=== PATIENT | male | born 1970 | race Caucasian/White ===

== ENCOUNTER 2018-01-19 17:40 | Observation (INO) ==
[2018-01-19] MEDS ORDERED: Isovue-370 500 ML INFUS..BTL IV ONE (17:50)
[2018-01-19] MEDS ORDERED: 0.9 % Sodium Chloride 500 ML IVC ONE (17:54)
--- NOTE | 2018-01-19 18:01 | Emergency Department Note ---
Disposition Clinical Impression: Chest pain Qualifiers: Chest pain type: unspecified Qualified Code(s): R07.9 - Chest pain, unspecified Hypertension Qualifiers: Hypertension type: unspecified Qualified Code(s): I10 - Essential (primary) hypertension Disposition: Admitted As Inpatient Condition: Fair Chest Pain HPI - General Stated Complaint: "htn,chest pressure,numbness in hand,headache" Time Seen by Provider: 01/19/18 17:43 Source: patient Mode of arrival: ambulatory Limitations: no limitations Vital Signs Reviewed: Yes Nursing Notes Reviewed: Yes - History of Present Illness HPI Narrative: 47-year-old male with a history of hypertension, dissection in the past presents for evaluation of chest pain. Patient states he developed chest pain intermittently since yesterday. Describes the pain in the left side of his chest without radiation. States it is similar to prior episode when he was evaluated. Patient did have a history of dissection and was transferred to [facility]. Patient reports that he took his blood pressure medication earlier today. Notes that his blood pressure is 180 systolic. Patient denies any nausea or vomiting but did note some diaphoresis. Denies any history of heart attacks. Patient also notes a headache with some left arm numbness. Patient denies any abdominal pain. No weakness in the legs. Severity scale (1-10): 0 - Related Data Home Medications Medication Instructions Recorded Confirmed Atorvastatin Calcium [Lipitor] 80 mg PO HS 01/19/18 01/19/18 Carvedilol 3.125 mg PO BID 01/19/18 01/19/18 Escitalopram [Lexapro] 20 mg PO DAILY 01/19/18 01/19/18 Esomeprazole Magnesium [Nexium] 40 mg PO DAILY 01/19/18 01/19/18 Gabapentin [Neurontin] 800 mg PO TID 01/19/18 01/19/18 Lisinopril [Zestril] 20 mg PO DAILY 01/19/18 01/19/18 Trazodone HCl 50 mg PO HS 01/19/18 01/19/18 Allergies Allergy/AdvReac Type Severity Reaction Status Date / Time No Known Allergies Allergy Verified 08/25/17 22:58 All systems ED: reviewed and negative except as stated. Constitutional: Denies: fever Cardiovascular: Reports: chest pain. Denies: palpitations Respiratory: Reports: dyspnea. Denies: cough, sputum production Gastrointestinal: Denies: abdominal pain, nausea, vomiting Chest Pain PMH - Past Medical History Medical history: Reports: hypertension, kidney stones, myocardial infarction Psychiatric history: Reports: anxiety, depression - Social History Smoking Status: Current every day smoker Alcohol use: Reports: rarely Drug use: Reports: none Physical Exam - General Limitations: no limitations General appearance: alert, in no apparent distress - Head Head exam: atraumatic, normocephalic, normal inspection - Eye Eye exam: Present: normal appearance, PERRL, EOMI - ENT ENT exam: normal exam, mucous membranes moist - Neck Neck exam: Present: normal inspection - Chest Chest inspection: Present: normal inspection, symmetric chest wall rise - Respiratory Respiratory exam: Present: normal lung sounds bilaterally. Absent: respiratory distress - Cardiovascular Cardiovascular exam: Present: regular rate, normal rhythm. Absent: systolic murmur - Abdominal Exam Abdominal exam: Present: soft, Non-Tender - Extremities Exam Extremities exam: Present: normal inspection. Absent: pedal edema - Expanded Lower Extremity Exam Neurovascular/Tendon exam: Present: normal capillary refill - Neurological Exam Neurological exam: Present: alert, oriented X3, CN II-XII intact - Skin Skin exam: Present: warm, dry, intact, normal color Course Course Narrative: Patient has a long symmetric radial pulses bilaterally. Given the patient's history patient with a CT Maritza the chest abdomen pelvis. - Reevaluation(s) Reevaluation #1: Patient seen and examined. Patient states that his pain has improved. Time: 19:37 Vital Signs Temperature 98.2 F 01/19/18 17:53 Pulse Rate 66 01/19/18 17:53 Respiratory Rate 16 01/19/18 17:53 Blood Pressure 162/101 01/19/18 17:53 O2 Sat by Pulse Oximetry 96 01/19/18 17:53 Temperature 98.2 F 01/19/18 17:53 Pulse Rate 57 01/19/18 19:43 Respiratory Rate 18 01/19/18 20:10 Blood Pressure 148/87 01/19/18 20:10 O2 Sat by Pulse Oximetry 97 01/19/18 19:43 Oxygen Delivery Oxygen Delivery Room Air Chest Pain - MDM Narrative Medical decision making narrative: 47-year-old male percent for evaluation of chest pain. Patient was hypertensive. 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 Patient was unclear of the source of the patient's aneurysm or dissection. Given that history the patient had a CTA of the chest, abd/ pelvis. Patient's chest pain as well as blood pressure improved after nitroglycerin. Given the patient's history and risk factors the patient would be observed for further evaluation with likely provocative stress testing. Disposition is admission. Patient's agreeable with this plan of care. Patient's CT of the chest abdomen pelvis does not show any acute abnormalities. Appears to be all chronic. Patient does not have any abdominal dissection. Patient was given aspirin given his degree of chest pain and concerns for ACS. - Lab Data Lab results reviewed: Yes I reviewed the patient's lab results. Result diagrams: 01/19/18 18:09 01/19/18 18:09 Lab Results 01/19/18 01/19/18 01/19/18 Range/Units 18:09 18:09 18:09 WBC 8.7 (4.3-11.1) K/mcL RBC 5.04 (4.19-5.50) M/mcL Hgb 14.5 (12.9-16.9) g/dL Hct 43.5 (37.5-50.1) % MCV 86.3 (83.0-100.0) fL MCH 28.8 (28.0-33.3) pg MCHC 33.3 (31.6-35.5) g/dL RDW 13.2 (11.5-14.5) % Plt Count 167 (140-400) K/mcL MPV 10.4 (9.4-12.4) fL Immature Gran % 0.3 (0-4) % Seg Neutrophils % 57.9 % Lymphocytes % 29.1 % Monocytes % 9.0 % Eosinophils % 2.9 % Basophils % 0.8 % Neutrophils # 5.0 (1.6-8.9) K/mcL Lymphocytes # 2.5 (0.6-4.6) K/mcL Monocytes # 0.8 (0.0-1.3) K/mcL Eosinophils # 0.3 (0.0-0.6) K/mcL Basophils # 0.1 (0.0-0.2) K/mcL PT 11.2 (9.4-12.1) Seconds INR 1.0 Sodium (136-145) mEq/L Potassium (3.5-5.1) mEq/L Chloride (98-107) mEq/L Carbon Dioxide (23-29) mEq/L BUN (6-20) mg/dL Creatinine (0.70-1.30) mg/dL Est GFR ( Amer) (> 60) Est GFR (Non-Af Amer) (> 60) BUN/Creatinine Ratio (6-26) Glucose (70-105) mg/dL Calculated Osmolality (280-300) Calcium (8.6-10.3) mg/dL Troponin I (< 0.04) ng/mL B-Natriuretic Peptide 12 (Less than 100) pg/mL 01/19/18 Range/Units 18:09 WBC (4.3-11.1) K/mcL RBC (4.19-5.50) M/mcL Hgb (12.9-16.9) g/dL Hct (37.5-50.1) % MCV (83.0-100.0) fL MCH (28.0-33.3) pg MCHC (31.6-35.5) g/dL RDW (11.5-14.5) % Plt Count (140-400) K/mcL MPV (9.4-12.4) fL Immature Gran % (0-4) % Seg Neutrophils % % Lymphocytes % % Monocytes % % Eosinophils % % Basophils % % Neutrophils # (1.6-8.9) K/mcL Lymphocytes # (0.6-4.6) K/mcL Monocytes # (0.0-1.3) K/mcL Eosinophils # (0.0-0.6) K/mcL Basophils # (0.0-0.2) K/mcL PT (9.4-12.1) Seconds INR Sodium 138 (136-145) mEq/L Potassium 3.7 (3.5-5.1) mEq/L Chloride 105 (98-107) mEq/L Carbon Dioxide 25 (23-29) mEq/L BUN 12 (6-20) mg/dL Creatinine 1.29 (0.70-1.30) mg/dL Est GFR ( Amer) > 60 (> 60) Est GFR (Non-Af Amer) 59 L (> 60) BUN/Creatinine Ratio 9 (6-26) Glucose 93 (70-105) mg/dL Calculated Osmolality 285 (280-300) Calcium 9.2 (8.6-10.3) mg/dL Troponin I < 0.03 (< 0.04) ng/mL B-Natriuretic Peptide (Less than 100) pg/mL - Radiology Data Radiology results reviewed: Yes I reviewed the patient's radiology results. Chest X-Ray 01/19/18 17:49 IMPRESSION: No acute cardiopulmonary disease. 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 A small patent channel is still present, and there is preserved opacification of the more peripheral hepatic artery branches. There appears to be some collateralization from the left gastric artery to the right gastric artery. Dissection involving the posterior division of the right renal artery, similar to the previous examination. There is scarring involving the right kidney in the site of previous infarct. Combination of findings raises the possibility of connective tissues disorder, vasculitis, or FMD. No evidence of aortic aneurysm or dissection. 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 Dissection involving the common hepatic artery with interval thrombosis of the false lumen. A small patent channel is still present, and there is preserved opacification of the more peripheral hepatic artery branches. There appears to be some collateralization from the left gastric artery to the right gastric artery. Dissection involving the posterior division of the right renal artery, similar to the previous examination. There is scarring involving the right kidney in the site of previous infarct. Combination of findings raises the possibility of connective tissues disorder, vasculitis, or FMD. No evidence of aortic aneurysm or dissection. D/ / 01/19/2018 19:59:46 Riki Degroot MD / tonya Interpreting Provider: Riki Degroot MD - EKG Data EKG attestation: Yes I reviewed and interpreted this EKG. EKG shows normal: sinus rhythm Rate: normal Rhythm: NSR [place]/QRS: left axis deviation Voltage: c/w LVH T wave inversions noted in: aVR, v1 Interpretation: no acute changes, nonspecific ST-T wave changes Heart Score - Score History: Moderately Suspicious EKG: Non Specific repolarisation Disturbance Age: 45-65 Risk Factors: Equal/Greater than 3 risk factor or history of atherosclerotic disease Troponin: Less than normal limit HEART Score Total: 5 S.French.Marcus - Jess Situation: Demographics Background: Presenting Complaint Assessment: Vital Signs, Course and respsone to treatment Recommendation: Barrier(s) to disposition, Recommendation based on pending studies, treatments, or consults SCarlie Report Given to: Dr. Christy Mercado Repor Time: 19:44
[2018-01-19 18:22] LABS: Basophils # 0.1 K/mcL (0.0-0.2); Basophils % 0.8 %; Eosinophils # 0.3 K/mcL (0.0-0.6); Eosinophils % 2.9 %; Hematocrit 43.5 % (37.5-50.1); Hemoglobin 14.5 g/dL (12.9-16.9); Immature Granulocytes % 0.3 % (0-4); Lymphocytes # 2.5 K/mcL (0.6-4.6); Lymphocytes % 29.1 %; Mean Corpuscular HGB Conc 33.3 g/dL (31.6-35.5); Mean Corpuscular Hemoglobin 28.8 pg (28.0-33.3); Mean Corpuscular Volume 86.3 fL (83.0-100.0); Mean Platelet Volume 10.4 fL (9.4-12.4); Monocytes # 0.8 K/mcL (0.0-1.3); Platelet Count 167 K/mcL (140-400); Red Blood Count 5.04 M/mcL (4.19-5.50); Red Cell Distribution Width 13.2 % (11.5-14.5); Segmented Neutrophils % 57.9 %
[2018-01-19 18:27] LABS: Prothrombin Time 11.2 Seconds (9.4-12.1)
[2018-01-19] MEDS: Nitroglycerin 0.4 MG TAB.SUBL SL ONE ×2 (18:29→19:00)
[2018-01-19 18:46] LABS: BUN/Creatinine Ratio 9 (6-26); Blood Urea Nitrogen 12 mg/dL (6-20); Calcium 9.2 mg/dL (8.6-10.3); Carbon Dioxide 25 mEq/L (23-29); Chloride 105 mEq/L (98-107); Glucose 93 mg/dL (70-105); Osmolality,Calculated 285 (280-300); Potassium 3.7 mEq/L (3.5-5.1); Sodium 138 mEq/L (136-145); Troponin I < 0.03 ng/mL (< 0.04); eGFR For African Americans > 60 (> 60); eGFR For Non-African Americans 59 (> 60)
[2018-01-19] MEDS ORDERED: Aspirin 325 MG TABLET PO ONE (20:04)
--- NOTE | 2018-01-19 20:14 | Emergency Department Note ---
Disposition Clinical Impression: Chest pain Qualifiers: Chest pain type: unspecified Qualified Code(s): R07.9 - Chest pain, unspecified Hypertension Qualifiers: Hypertension type: unspecified Qualified Code(s): I10 - Essential (primary) hypertension Disposition: Admitted As Inpatient Condition: Fair General Adult HPI - General Chief complaint: ED Chest Pain Stated complaint: "htn,chest pressure,numbness in hand,headache" Time Seen by Provider: 01/19/18 17:43 Source: patient Mode of arrival: ambulatory Limitations: no limitations - History of Present Illness Pain Scale: 0 - Related Data Home Medications Medication Instructions Recorded Confirmed Atorvastatin Calcium [Lipitor] 80 mg PO HS 01/19/18 01/19/18 Carvedilol 3.125 mg PO BID 01/19/18 01/19/18 Escitalopram [Lexapro] 20 mg PO DAILY 01/19/18 01/19/18 Esomeprazole Magnesium [Nexium] 40 mg PO DAILY 01/19/18 01/19/18 Gabapentin [Neurontin] 800 mg PO TID 01/19/18 01/19/18 Lisinopril [Zestril] 20 mg PO DAILY 01/19/18 01/19/18 Trazodone HCl 50 mg PO HS 01/19/18 01/19/18 Allergies Allergy/AdvReac Type Severity Reaction Status Date / Time No Known Allergies Allergy Verified 08/25/17 22:58 Constitutional: Denies: fever Cardiovascular: Reports: chest pain. Denies: palpitations Respiratory: Reports: dyspnea. Denies: cough, sputum production Gastrointestinal: Denies: abdominal pain, nausea, vomiting Past Medical History - Past Medical History Medical history: Reports: hypertension, kidney stones, myocardial infarction Psychiatric history: Reports: anxiety, depression - Social History Smoking Status: Current every day smoker Smokeless Tobacco Status: No Alcohol use: Reports: rarely Drug use: Reports: none Physical Exam - General Limitations: no limitations General appearance: alert, in no apparent distress Course Vital Signs Temperature 98.2 F 01/19/18 17:53 Pulse Rate 66 01/19/18 17:53 Respiratory Rate 16 01/19/18 17:53 Blood Pressure 162/101 01/19/18 17:53 O2 Sat by Pulse Oximetry 96 01/19/18 17:53 Temperature 98.2 F 01/19/18 17:53 Pulse Rate 57 01/19/18 19:43 Respiratory Rate 18 01/19/18 20:10 Blood Pressure 148/87 01/19/18 20:10 O2 Sat by Pulse Oximetry 97 01/19/18 19:43 Oxygen Delivery Oxygen Delivery Room Air Medical Decision Making - Lab Data Result diagrams: 01/19/18 18:09 01/19/18 18:09 Lab Results 01/19/18 01/19/18 01/19/18 Range/Units 18:09 18:09 18:09 WBC 8.7 (4.3-11.1) K/mcL RBC 5.04 (4.19-5.50) M/mcL Hgb 14.5 (12.9-16.9) g/dL Hct 43.5 (37.5-50.1) % MCV 86.3 (83.0-100.0) fL MCH 28.8 (28.0-33.3) pg MCHC 33.3 (31.6-35.5) g/dL RDW 13.2 (11.5-14.5) % Plt Count 167 (140-400) K/mcL MPV 10.4 (9.4-12.4) fL Immature Gran % 0.3 (0-4) % Seg Neutrophils % 57.9 % Lymphocytes % 29.1 % Monocytes % 9.0 % Eosinophils % 2.9 % Basophils % 0.8 % Neutrophils # 5.0 (1.6-8.9) K/mcL Lymphocytes # 2.5 (0.6-4.6) K/mcL Monocytes # 0.8 (0.0-1.3) K/mcL Eosinophils # 0.3 (0.0-0.6) K/mcL Basophils # 0.1 (0.0-0.2) K/mcL PT 11.2 (9.4-12.1) Seconds INR 1.0 Sodium (136-145) mEq/L Potassium (3.5-5.1) mEq/L Chloride (98-107) mEq/L Carbon Dioxide (23-29) mEq/L BUN (6-20) mg/dL Creatinine (0.70-1.30) mg/dL Est GFR ( Amer) (> 60) Est GFR (Non-Af Amer) (> 60) BUN/Creatinine Ratio (6-26) Glucose (70-105) mg/dL Calculated Osmolality (280-300) Calcium (8.6-10.3) mg/dL Troponin I (< 0.04) ng/mL B-Natriuretic Peptide 12 (Less than 100) pg/mL 01/19/18 Range/Units 18:09 WBC (4.3-11.1) K/mcL RBC (4.19-5.50) M/mcL Hgb (12.9-16.9) g/dL Hct (37.5-50.1) % MCV (83.0-100.0) fL MCH (28.0-33.3) pg MCHC (31.6-35.5) g/dL RDW (11.5-14.5) % Plt Count (140-400) K/mcL MPV (9.4-12.4) fL Immature Gran % (0-4) % Seg Neutrophils % % Lymphocytes % % Monocytes % % Eosinophils % % Basophils % % Neutrophils # (1.6-8.9) K/mcL Lymphocytes # (0.6-4.6) K/mcL Monocytes # (0.0-1.3) K/mcL Eosinophils # (0.0-0.6) K/mcL Basophils # (0.0-0.2) K/mcL PT (9.4-12.1) Seconds INR Sodium 138 (136-145) mEq/L Potassium 3.7 (3.5-5.1) mEq/L Chloride 105 (98-107) mEq/L Carbon Dioxide 25 (23-29) mEq/L BUN 12 (6-20) mg/dL Creatinine 1.29 (0.70-1.30) mg/dL Est GFR ( Amer) > 60 (> 60) Est GFR (Non-Af Amer) 59 L (> 60) BUN/Creatinine Ratio 9 (6-26) Glucose 93 (70-105) mg/dL Calculated Osmolality 285 (280-300) Calcium 9.2 (8.6-10.3) mg/dL Troponin I < 0.03 (< 0.04) ng/mL B-Natriuretic Peptide (Less than 100) pg/mL Attestation Statement - Attestation Attestation: I examined this patient and my medical decision-making was reviewed with the Resident Physician, Dr. Muller. I agree with the documented findings, disposition and treatment plan as described except to the extent set forth below. Patient is a 47-year-old white male with a history of hypertension and prior vascular dissection who presents the emergency department with left parasternal chest discomfort that been intermittent over the past 24-36 hours occurring at rest. Patient denies any radiation of pain, shortness of breath, no diaphoresis , no nausea or vomiting, no abdominal pain or flank pain. No lightheadedness or syncope. Patient was concerned because of his prior dissection to is advised to keep a close eye on his blood pressure. Patient reports despite taking his medicines as directed he is having elevated blood pressure and just "feels like my blood pressures high". Patient denies any headaches or neurologic symptoms. Patient significantly hypertensive on arrival to the ED. I agree with patient's physical exam findings as documented. EKG shows a sinus rhythm without acute ischemia. Patient had full lab evaluation, was given nitroglycerin for his chest pain which resolved his pain and improved his blood pressure. Patient was sent for CT imaging due to his history of aneurysms. We do not see any new findings with the exception of his old dissections. Patient was administered aspirin after review of the CT findings and will be admitted for chest pain and elevated blood pressure. Patient remains pain-free resting comfortably with improved vital signs at time of admission.
[2018-01-19] MEDS ORDERED: Acetaminophen 325 MG TABLET PO PRN (20:53)
[2018-01-19] MEDS ORDERED: Naloxone 0.4 MG/ML INJ IVP PRN (20:53)
--- NOTE | 2018-01-19 20:58 | Internal Med History&Physical ---
Date of Encounter: 01/19/18 Time of Encounter: 20:00 Internal Medicine - H&P: HPI Chief complaint: Chest pain Admitted From: Emergency Dept Plans for Post Hospital Care: Home History of present illness: Mr. Thomas is a 47 year old male with h/o- HTN, celiac artery aneurysm, presents with c/o- uncontrolled HTN since yesterday. Patient reports that he was symptomatic with retrosternal chest pain and diffuse headache and did not feel well since yesterday, and when he took his BP, it was constantly elevated, the maximum being 180s/120s. He is unable to provide a detailed history, reports lately his HTN has been well-controlled, no changes in medication dosage ; reports compliance to meds and salt restriction. He denies nausea, vomiting, dizzines, syncope but did have some shortness of breath, left finger numbness; no focal weakness, blurred vision. 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 Past Med Surg Social Fam HX - Past Medical History Source: patient Medical history: aortic aneurysm, hypertension, kidney stones Psychiatric history: anxiety, depression - Past Surgical History Surgical History: herniorrhaphy, orthopedic, other (B/L shoulder surgery) - Social History Smoking Status: Current every day smoker Packs per day: 1/2 Smokeless Tobacco Status: No Alcohol use: rarely Drug use: none Occupational status: disabled Current living situation: Home, With Family Activity Level: Independent ambulation Recent Out of Country Travel Within the Last 8 Weeks: No Exposure or Possible Exposure to Illness During Travel: No - Family History Father Hx Family Cancer: Yes (prostate) Mother Living Status: Age at : 48 Cause of : cancer Hx Family Cancer: Yes (liver, kidney) Internal Medicine - H&P: Meds Atorvastatin Calcium [Lipitor] 80 mg PO HS 01/19/18 [History] Carvedilol 3.125 mg PO BID 01/19/18 [History] Escitalopram [Lexapro] 20 mg PO DAILY 01/19/18 [History] Esomeprazole Magnesium [Nexium] 40 mg PO DAILY 01/19/18 [History] Gabapentin [Neurontin] 800 mg PO TID 01/19/18 [History] Lisinopril [Zestril] 20 mg PO DAILY 01/19/18 [History] Trazodone HCl 50 mg PO HS 01/19/18 [History] 3 Allergy/AdvReac Type Severity Reaction Status Date / Time No Known Allergies Allergy Verified 08/25/17 22:58 All Systems PM: A 10-system review of systems was performed and is negative for pertinent findings except as documented above in the HPI. - Constitutional Constitutional: no chills, no fever(s), no night sweats - EENT Eyes: no change in vision, no discharge, no pain, no photophobia Ears: no ear discharge, no ear pain, no tinnitus Nose, mouth and throat: no dysphagia, no nasal discharge, no neck pain, no sore throat - Cardiovascular Cardiovascular ROS IM: chest pain, dyspnea - Respiratory Respiratory: no cough, no dyspnea, no wheezing, no excessive phlegm production - Gastrointestinal Gastrointestinal: no abdominal pain, no diarrhea, no hematemesis, no hematochezia, no melena, no nausea, no vomiting - Musculoskeletal Musculoskeletal ROS IM: numbness, no tingling - Integumentary Integumentary IM: no rash, no unusual bruising - Neurological Neurological ROS: headache(s), no confusion, no convulsions, no focal weakness, no numbness, no tingling, no tremor(s) - Hematologic/Lymphatic Hematologic/Lymphatic: no easy bruising - Constitutional Vitals: Temp Pulse Resp BP Pulse Ox 98.0 F 58 16 160/97 97 01/19/18 20:42 01/19/18 20:42 01/19/18 20:42 01/19/18 20:42 01/19/18 20:42 General appearance: Present: A&O X 3, answers questions appropriately - Respiratory Respiratory exam: Present: CTAB. Absent: accessory muscle use, rales, rhonchi, wheezes - Cardiovascular Cardiovascular exam: Present: RRR, +S1, +S2. Absent: diastolic murmur, gallop, rubs, systolic murmur - GI/Abdominal GI/Abdominal exam: Present: normal bowel sounds, soft (obese), no peritoneal signs. Absent: distended, tenderness - Extremities Exam Extremities exam: Present: full ROM, warm, radial pulses palpable and symmetrical. Absent: calf tenderness, cyanotic, pedal edema - Neurological Exam Neurological exam: Present: CN II-XII intact, oriented X3, no focal deficits. Absent: pronater drift, facial droop, speech deficit - Skin Skin exam: Present: dry, intact Internal Med - H&P Results - Labs CBC & Chem 7: 01/19/18 18:09 01/19/18 18:09 - EKG Data -: EKG Interpreted by Myself EKG shows normal: sinus rhythm (repolarization changes) Rate: normal - Assessment and plan (1) Chest pain Current Visit: Yes Status: Acute Assessment and plan: likely due to uncontrolled HTN; continue Telemetry monitoring and cycle Troponins; monitor BP closely; continue statin and beta cristian and ACEI; not on ASA and would not continue due to h/o- vascular aneurysm and dissection; Qualifiers: Chest pain type: unspecified Qualified Code(s): R07.9 - Chest pain, unspecified (2) Hypertension Current Visit: Yes Status: Chronic Assessment and plan: Uncontrolled; continue Coreg and Lisinopril; will use IV Hydralazine for appropriate BP control, 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 High risk for complications. 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
[2018-01-19] MEDS: traZODone 50 MG TABLET PO SCH (21:25)
[2018-01-19] MEDS: Gabapentin 400 MG CAPSULE PO SCH (21:26)
[2018-01-20 01:56] LABS: Basophils # 0.1 K/mcL (0.0-0.2); Basophils % 0.8 %; Eosinophils # 0.2 K/mcL (0.0-0.6); Eosinophils % 3.7 %; Hematocrit 43.2 % (37.5-50.1); Hemoglobin 14.5 g/dL (12.9-16.9); Immature Granulocytes % 0.3 % (0-4); Lymphocytes # 2.2 K/mcL (0.6-4.6); Lymphocytes % 35.2 %; Mean Corpuscular HGB Conc 33.6 g/dL (31.6-35.5); Mean Corpuscular Hemoglobin 28.8 pg (28.0-33.3); Mean Corpuscular Volume 85.9 fL (83.0-100.0); Mean Platelet Volume 10.9 fL (9.4-12.4); Monocytes # 0.6 K/mcL (0.0-1.3); Monocytes % 10.4 %; Neutrophils # 3.1 K/mcL (1.6-8.9); Platelet Count 162 K/mcL (140-400); Red Blood Count 5.03 M/mcL (4.19-5.50); Red Cell Distribution Width 13.2 % (11.5-14.5); Segmented Neutrophils % 49.6 %
[2018-01-20 02:21] LABS: BUN/Creatinine Ratio 12 (6-26); Blood Urea Nitrogen 13 mg/dL (6-20); Carbon Dioxide 23 mEq/L (23-29); Chloride 106 mEq/L (98-107); Cholesterol 131 mg/dL (< 200); Glucose 106 mg/dL (70-105); HDL Cholesterol 26 mg/dL (40-59); LDL Cholesterol,Calculated 40 mg/dL (0-99); Magnesium 1.9 mg/dL (1.6-2.6); Osmolality,Calculated 287 (280-300); Potassium 3.2 mEq/L (3.5-5.1); Sodium 138 mEq/L (136-145); Triglycerides 324 mg/dL (< 150); eGFR For African Americans > 60 (> 60); eGFR For Non-African Americans > 60 (> 60)
[2018-01-20] MEDS: Gabapentin 400 MG CAPSULE PO SCH ×3 (07:54→20:54)
[2018-01-20] MEDS: Lisinopril 20 MG TABLET PO SCH (07:54)
[2018-01-20] MEDS ORDERED: Metoclopramide 10 MG/2 ML VIAL IVP ONE (15:00)
[2018-01-20] MEDS ORDERED: Ketorolac 30 MG/ML VIAL IVP ONE (15:00)
--- NOTE | 2018-01-20 15:52 | Internal Med Progress Note ---
Date of Encounter: 01/20/18 Time of Encounter: 15:50 - Assessment and plan (1) Paresthesia Current Visit: Yes Status: Acute Assessment and plan: Patient reported paresthesia to left hand and mouth that lasted approximately 1 hour on day of arrival. Possibly secondary to uncontrolled hypertension however concern for possible TIA/CVA with uncontrolled hypertension. Holding ASA with chronic hepatic/renal dissection. Continue BB, statin. Brain MRI pending (2) Chest pain Current Visit: Yes Status: Acute Assessment and plan: likely due to uncontrolled HTN. Serial troponin negative. Cont statin and beta cristian and ACEI; not on ASA and would not continue due to h/o- vascular aneurysm and dissection. Chest pain resolved, echocardiogram pending. Continue to monitor on telemetry. Qualifiers: Chest pain type: unspecified Qualified Code(s): R07.9 - Chest pain, unspecified (3) Hypertension Current Visit: Yes Status: Chronic Assessment and plan: Uncontrolled. Cont home Coreg and Lisinopril. 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 High risk for complications. 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 [facility] records requested (5) Hepatic artery dissection Current Visit: Yes Status: Chronic Assessment and plan: chronic per hx. Cont BP control as noted above (6) DVT prophylaxis Current Visit: Yes Status: Acute Assessment and plan: SCD - Time Spent With Patient Total time spent is greater than 50% in coordination of care (as documented) at patient's floor/unit and/or counseling patient: - Subjective Interval history: Seen and examined at bedside. Patient is new to me, information obtained from chart review and patient report. Overall says he feels better, still has a little with a headache. Paresthesias and chest pain has resolved. - Constitutional Vitals: Temp Pulse Resp BP Pulse Ox 98.4 F 70 16 156/91 95 01/20/18 14:27 01/20/18 14:27 01/20/18 14:27 01/20/18 14:27 01/20/18 14:27 General appearance: Present: A&O X 3, morbidly obese, no acute distress, answers questions appropriately - Head Head exam: Present: atraumatic, normocephalic - Eye Eye exam: Present: PERRL, conjuntiva pink, sclera anicteric Pupils: Present: PERRL - Neck Neck exam general surgery: Present: supple, trachea midline. Absent: lymphadenopathy - Respiratory Respiratory exam: Present: CTAB. Absent: accessory muscle use, rales, rhonchi, wheezes - Cardiovascular Cardiovascular exam: Present: RRR, +S1, +S2. Absent: diastolic murmur, gallop, rubs, systolic murmur - GI/Abdominal GI/Abdominal exam: Present: normal bowel sounds, soft, no peritoneal signs. Absent: distended, tenderness - Extremities Exam Extremities exam: Present: warm, radial pulses palpable and symmetrical. Absent : calf tenderness, cyanotic, pedal edema - Neurological Exam Neurological exam: Present: CN II-XII intact, oriented X3, no focal deficits. Absent: pronater drift, facial droop, speech deficit - Skin Skin exam: Present: dry, intact Internal Medicine: Result - Labs CBC & Chem 7: 01/20/18 01:08 01/20/18 01:08 Labs: Short CBC 01/20/18 Range/Units 01:08 WBC 6.2 (4.3-11.1) K/mcL Hgb 14.5 (12.9-16.9) g/dL Hct 43.2 (37.5-50.1) % Plt Count 162 (140-400) K/mcL Neutrophils # 3.1 (1.6-8.9) K/mcL BMP 01/20/18 01:08 Sodium 138 Potassium 3.2 L Chloride 106 Carbon Dioxide 23 BUN 13 Creatinine 1.11 Glucose 106 H Calcium 9.0 Cardiac Enzymes 01/20/18 01/20/18 Range/Units 01:08 06:30 Troponin I < 0.03 < 0.03 (< 0.04) ng/mL - ABG Interpretation ABG results: PT/INR, D-dimer PT 11.2 Seconds (9.4-12.1) 01/19/18 18:09 Consult Discharge Plan - Plan Referrals: Cindy Pantoja MD [Primary Care Provider] -
--- NOTE | 2018-01-20 16:18 | Electrocardiograph Report ---
[place] [id number] Test Date: 2018-01-19 Pat Name: Leighton Thomas Department: 104 Room: 3B55 Gender: M [employer]: CAIT : 1970 Requested By: Quirino Muller Order Number: [id number] Reading MD: Aditi Denis Measurements Intervals [place] Rate: 68 P: 35 WI: 163 QRS: -23 QRSD: 105 T: 15 QT: 398 QTc: 415 Interpretive Statements SINUS RHYTHM BORDERLINE LEFT AXIS DEVIATION [QRS AXIS < -20] MODERATE VOLTAGE CRITERIA FOR LVH, CONSIDER NORMAL VARIANT [MEETS CRITERIA IN ONE OF: R(aVL), S(V1), R(V5), R(V5/V6)+S(V1)] Electronically Signed On 01-20-2018 16:16:39 EDT by Aditi Denis
[2018-01-20] MEDS: traZODone 50 MG TABLET PO SCH (20:54)
[2018-01-21 05:19] LABS: Hematocrit 43.2 % (37.5-50.1); Hemoglobin 14.5 g/dL (12.9-16.9); Mean Corpuscular HGB Conc 33.6 g/dL (31.6-35.5); Mean Corpuscular Volume 86.4 fL (83.0-100.0); Mean Platelet Volume 11.3 fL (9.4-12.4); Platelet Count 174 K/mcL (140-400); Red Cell Distribution Width 13.5 % (11.5-14.5)
[2018-01-21 05:37] LABS: Calcium 9.4 mg/dL (8.6-10.3); Potassium 3.9 mEq/L (3.5-5.1)
[2018-01-21] MEDS: Gabapentin 400 MG CAPSULE PO SCH ×2 (07:21→13:59)
[2018-01-21] MEDS: Lisinopril 20 MG TABLET PO SCH (07:21)
[2018-01-21] MEDS ORDERED: 0.9 % Sodium Chloride 500 ML IVC ONE (10:14)
[2018-01-21] MEDS ORDERED: amLODIPine 5 MG TABLET PO SCH (10:30)
[2018-01-21 14:23] VITALS: BP 171/105
--- NOTE | 2018-01-21 14:25 | Discharge Summary ---
Orders not resulted at time of discharge: Pending orders 01/22/18 04:00 BMP [Basic Metabolic Panel] AM 0400 Complete Blood Count w/o Diff [HEME] AM 04001/23/18 04:00 BMP [Basic Metabolic Panel] AM 0400 Complete Blood Count w/o Diff [HEME] AM 0400 01/24/18 04:00 BMP [Basic Metabolic Panel] AM 0400 Complete Blood Count w/o Diff [HEME] AM 0400 01/25/18 04:00 BMP [Basic Metabolic Panel] AM 0400 Complete Blood Count w/o Diff [HEME] AM 0400 Date of Encounter: 01/21/18 Time of Encounter: 14:25 - Discharge Diagnosis (1) Chest pain Priority: Primary Status: Acute Assessment and Plan: likely due to uncontrolled HTN. Serial troponin negative, no acute EKG changes. TTE with EF 2%, mild diastolic dysfunction, no pulmonary hypertension, no valvular dysfunction and no wall motion abnormalities. Discussed case with Dr. Austin Lee and will start low dose ASA for cardioprotective measures (patient has chronic hepatic and renal artery dissection as noted below). Chest pain resolved at time of discharge. Patient declined further inpatient cardiac workup; specifically declined stress test. Cont JAHAIRA, BB, statin, ASA. Advised to return to the ER if chest pain/SOB recurs. Qualifiers: Chest pain type: unspecified Qualified Code(s): R07.9 - Chest pain, unspecified (2) Paresthesia Priority: Primary Status: Resolved Assessment and Plan: Patient reported paresthesia to left hand and mouth that lasted approximately 1 hour on day of arrival. Brain MRI negative for acute infarct. Paresthesia possibly secondary to uncontrolled blood pressure; resolved at time of discharge. Continue ASA, BB, statin. (3) Hypertension Priority: Primary Status: Chronic Assessment and Plan: Uncontrolled. Patient reported medication compliance however he also reported that SBP typically in the 150-160 range at home. 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 BP improved with adding amlodipine. Continue home JAHAIRA, BB, amlodipine. 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 [facility] records requested multiple times but never received. Patient reported he has follow-up scheduled with vascular surgeon at [facility] 2017. Advised to keep follow-up appointment as previously scheduled. (5) Hepatic artery dissection Priority: Secondary Status: Chronic Assessment and Plan: chronic per hx. ABD CTA with chronic, stable dissection. Follow-up with vascular surgery outpatient as noted above Hospital course: See assessment and plan for Hospital course Discharge discussed with: patient (Seen and examined at bedside. Says he feels better once to discharge home today. His blood pressure remains elevated and he is reluctant to say; he is agreeable to stay for a few more hours to monitor BP. Denies chest pain. Offered inpatient stress test/echocardiogram and patient says that he will follow-up with PCP outpatient.) - Time Spent with Patient Total time spent providing and/or coordinating discharge services: - Discharge Medications Prescriptions: amLODIPine [Norvasc] 10 mg PO DAILY #60 tablet Aspirin 81 mg PO DAILY #30 tab.chew Home Medications: Atorvastatin Calcium [Lipitor] 80 mg PO HS 01/19/18 [History] Carvedilol 3.125 mg PO BID 01/19/18 [History] Escitalopram [Lexapro] 20 mg PO DAILY 01/19/18 [History] Esomeprazole Magnesium [Nexium] 40 mg PO DAILY 01/19/18 [History] Gabapentin [Neurontin] 800 mg PO TID 01/19/18 [History] Lisinopril [Zestril] 20 mg PO DAILY 01/19/18 [History] Trazodone HCl 50 mg PO HS 01/19/18 [History] Aspirin 81 mg PO DAILY #30 tab.chew 01/21/18 [Rx] amLODIPine [Norvasc] 10 mg PO DAILY #60 tablet 01/21/18 [Rx] Allergies/Adverse Reactions: 3 Allergy/AdvReac Type Severity Reaction Status Date / Time No Known Allergies Allergy Verified 08/25/17 22:58 Date of admission: 01/19/18 19:55 Primary care physician: Cindy Pantoja MD Discharging clinician: Litzy Carrillo Anticipated date of discharge: 01/21/18 - Constitutional Vitals: Temp Pulse Resp BP Pulse Ox 97.6 F 66 18 155/87 98 01/21/18 11:57 01/21/18 11:57 01/21/18 11:57 01/21/18 14:16 01/21/18 11:57 General appearance: Present: A&O X 3, morbidly obese, no acute distress, answers questions appropriately - Head Head exam: Present: atraumatic, normocephalic - Eye Eye exam: Present: PERRL, conjuntiva pink, sclera anicteric Pupils: Present: PERRL - Neck Neck exam general surgery: Present: supple, trachea midline. Absent: lymphadenopathy - Respiratory Respiratory exam: Present: CTAB. Absent: accessory muscle use, rales, rhonchi, wheezes - Cardiovascular Cardiovascular exam: Present: RRR, +S1, +S2. Absent: diastolic murmur, gallop, rubs, systolic murmur - GI/Abdominal GI/Abdominal exam: Present: normal bowel sounds, soft, no peritoneal signs. Absent: distended, tenderness - Extremities Exam Extremities exam: Present: warm, radial pulses palpable and symmetrical. Absent : calf tenderness, cyanotic, pedal edema - Neurological Exam Neurological exam: Present: CN II-XII intact, oriented X3, no focal deficits. Absent: pronater drift, facial droop, speech deficit - Skin Skin exam: Present: dry, intact - Patient Status Disposition: Home, Self-Care Condition: Good Functional capacity at discharge: independent ambulation Overall status at discharge: patient is back to baseline - Discharge Instructions Instructions: Amlodipine (By mouth), Hypertension (DC), Chest Pain (DC), Aspirin (By mouth) Follow Up With: Cindy Pantoja MD [Primary Care Provider] - (Please follow-up with your PCP within one week for BP recheck) Forms: ED Satisfaction Letter Additional Instructions: Please follow-up with vascular surgeon at [facility] as scheduled. - Diet and Activity Activity: increase activity as tolerated Diet: low fat, low cholesterol
== END 2018-01-21 15:04 | disposition home or self-care (01) ==
LOC: 3BNU 17:40 → EMEROO 17:40 → 3BNU 20:12
PROVIDERS: ADMIT Internal Medicine; ATTEND Internal Medicine

== ENCOUNTER 2019-08-09 12:09 | Observation (INO) ==
[2019-08-09 12:37] LABS: Basophils # 0.1 K/mcL (0.0-0.2); Basophils % 0.7 %; Eosinophils # 0.2 K/mcL (0.0-0.6); Hematocrit 45.5 % (37.5-50.1); Hemoglobin 15.6 g/dL (12.9-16.9); Immature Granulocytes % 0.2 % (0-4); Lymphocytes # 1.9 K/mcL (0.6-4.6); Lymphocytes % 23.5 %; Mean Corpuscular HGB Conc 34.3 g/dL (31.6-35.5); Mean Corpuscular Hemoglobin 30.4 pg (28.0-33.3); Mean Corpuscular Volume 88.5 fL (83.0-100.0); Mean Platelet Volume 9.4 fL (9.4-12.4); Monocytes # 0.7 K/mcL (0.0-1.3); Neutrophils # 5.3 K/mcL (1.6-8.9); Platelet Count 232 K/mcL (140-400); Red Blood Count 5.14 M/mcL (4.19-5.50); Red Cell Distribution Width 14.1 % (11.5-14.5); Segmented Neutrophils % 65.6 %; White Blood Count 8.1 K/mcL (4.3-11.1)
[2019-08-09] MEDS ORDERED: Isovue-370 500 ML BOTTLE IVP ONE (12:42)
[2019-08-09 13:02] LABS: BUN/Creatinine Ratio 7 (6-26); Blood Urea Nitrogen 10 mg/dL (6-20); Calcium 9.2 mg/dL (8.6-10.3); Carbon Dioxide 22 mEq/L (23-29); Chloride 103 mEq/L (98-107); Glucose 100 mg/dL (70-105); Osmolality,Calculated 279 (280-300); Potassium 3.9 mEq/L (3.5-5.1); Sodium 135 mEq/L (136-145); Troponin I < 0.03 ng/mL (< 0.04); eGFR For African Americans > 60 (> 60); eGFR For Non-African Americans 53 (> 60)
[2019-08-09] MEDS ORDERED: Aspirin 325 MG TABLET PO ONE (14:41)
[2019-08-09] MEDS ORDERED: Nitroglycerin 0.4 MG TAB.SUBL SL PRN (17:23)
[2019-08-09] MEDS: Gabapentin 400 MG CAPSULE PO SCH (19:11)
[2019-08-09] MEDS ORDERED: Acetaminophen 325 MG TABLET PO ONE (19:42)
[2019-08-09] MEDS: traZODone 50 MG TABLET PO SCH (20:05)
[2019-08-09] MEDS: carvediloL 6.25 MG TABLET PO SCH (20:05)
[2019-08-10 01:00] LABS: Basophils # 0.1 K/mcL (0.0-0.2); Basophils % 0.8 %; Eosinophils # 0.2 K/mcL (0.0-0.6); Eosinophils % 2.4 %; Hematocrit 42.9 % (37.5-50.1); Hemoglobin 14.7 g/dL (12.9-16.9); Immature Granulocytes % 0.3 % (0-4); Lymphocytes # 2.4 K/mcL (0.6-4.6); Mean Corpuscular HGB Conc 34.3 g/dL (31.6-35.5); Mean Corpuscular Hemoglobin 30.1 pg (28.0-33.3); Mean Corpuscular Volume 87.9 fL (83.0-100.0); Mean Platelet Volume 9.4 fL (9.4-12.4); Monocytes # 0.5 K/mcL (0.0-1.3); Monocytes % 7.3 %; Platelet Count 214 K/mcL (140-400); Red Blood Count 4.88 M/mcL (4.19-5.50); Red Cell Distribution Width 14.6 % (11.5-14.5); Segmented Neutrophils % 56.2 %; White Blood Count 7.1 K/mcL (4.3-11.1)
[2019-08-10 01:04] LABS: Prothrombin Time 11.4 Seconds (9.4-12.1)
[2019-08-10 01:21] LABS: Albumin 3.6 g/dL (3.5-5.7); Albumin/Globulin Ratio 1.3 (1.1-2.2); Bilirubin,Total 0.3 mg/dL (0.3-1.0); Calcium 8.8 mg/dL (8.6-10.3); Globulin 2.8 g/dL (2.4-3.5); Magnesium 1.9 mg/dL (1.6-2.6); Potassium 3.9 mEq/L (3.5-5.1); Total Protein 6.4 g/dL (6.4-8.9)
[2019-08-10] MEDS ORDERED: Regadenoson 0.4 MG/5 ML SYRINGE IVP ONE (06:42)
[2019-08-10] MEDS: amLODIPine 5 MG TABLET PO SCH (09:05)
[2019-08-10] MEDS: Aspirin 81 MG TAB.CHEW PO SCH (09:05)
[2019-08-10] MEDS: carvediloL 6.25 MG TABLET PO SCH ×2 (09:05→19:55)
[2019-08-10] MEDS: Gabapentin 400 MG CAPSULE PO SCH ×3 (09:06→19:56)
[2019-08-10] MEDS: 0.9 % Sodium Chloride 1,000 ML IVC SCH ×2 (09:06→19:54)
[2019-08-10] MEDS: Lisinopril 20 MG TABLET PO SCH (09:06)
[2019-08-10] MEDS: traZODone 50 MG TABLET PO SCH (19:55)
[2019-08-11 01:55] LABS: BUN/Creatinine Ratio 10 (6-26); Blood Urea Nitrogen 14 mg/dL (6-20); Calcium 8.8 mg/dL (8.6-10.3); Carbon Dioxide 24 mEq/L (23-29); Chloride 105 mEq/L (98-107); Glucose 112 mg/dL (70-105); Osmolality,Calculated 285 (280-300); Potassium 3.9 mEq/L (3.5-5.1); Sodium 137 mEq/L (136-145); eGFR For African Americans > 60 (> 60); eGFR For Non-African Americans 54 (> 60)
[2019-08-11 07:43] VITALS: BP 154/83
[2019-08-11] MEDS: amLODIPine 5 MG TABLET PO SCH (09:10)
[2019-08-11] MEDS: Gabapentin 400 MG CAPSULE PO SCH (09:10)
[2019-08-11] MEDS: Lisinopril 20 MG TABLET PO SCH (09:10)
[2019-08-11] MEDS: carvediloL 6.25 MG TABLET PO SCH (09:10)
[2019-08-11] MEDS: Aspirin 81 MG TAB.CHEW PO SCH (09:11)
== END 2019-08-11 10:35 | disposition home or self-care (01) ==
LOC: 3BNU 12:09 → EMEROOARM 12:09 → SUATTDRO 15:00 → 3BNU 15:20
PROVIDERS: ADMIT Family Medicine; ATTEND Internal Medicine

== ENCOUNTER 2021-01-01 17:23 | Observation (INO) ==
[2021-01-01 17:55] LABS: Basophils # 0.1 K/mcL (0.0-0.2); Basophils % 0.6 %; Eosinophils # 0.1 K/mcL (0.0-0.6); Eosinophils % 1.2 %; Hematocrit 40.8 % (37.5-50.1); Hemoglobin 13.7 g/dL (12.9-16.9); Immature Granulocytes % 0.2 % (0-4); Lymphocytes # 0.8 K/mcL (0.6-4.6); Lymphocytes % 9.5 %; Mean Corpuscular HGB Conc 33.6 g/dL (31.6-35.5); Mean Corpuscular Hemoglobin 30.9 pg (28.0-33.3); Mean Corpuscular Volume 92.1 fL (83.0-100.0); Mean Platelet Volume 9.6 fL (9.4-12.4); Monocytes # 0.8 K/mcL (0.0-1.3); Monocytes % 9.3 %; Neutrophils # 6.8 K/mcL (1.6-8.9); Platelet Count 221 K/mcL (140-400); Red Blood Count 4.43 M/mcL (4.19-5.50); Red Cell Distribution Width 12.9 % (11.5-14.5); Segmented Neutrophils % 79.2 %; White Blood Count 8.6 K/mcL (4.3-11.1)
[2021-01-01] MEDS ORDERED: methylPREDNISolone 125 MG/2 ML VIAL IVP ONE (18:13)
[2021-01-01] MEDS ORDERED: Ipratropium/Albuterol Neb 3 ML IH ONE (18:13)
[2021-01-01 18:16] LABS: BUN/Creatinine Ratio 6 (6-26); Blood Urea Nitrogen 11 mg/dL (6-20); Calcium 9.4 mg/dL (8.6-10.3); Carbon Dioxide 20 mEq/L (23-29); Chloride 102 mEq/L (98-107); Glucose 117 mg/dL (70-105); Osmolality,Calculated 278 (280-300); Potassium 3.4 mEq/L (3.5-5.1); Sodium 134 mEq/L (136-145); Troponin I < 0.03 ng/mL (< 0.04); eGFR For African Americans 51 (> 60); eGFR For Non-African Americans 42 (> 60)
[2021-01-01] MEDS ORDERED: Azithromycin 500 MG in D5% in Water 250 ML IVPB ONE (18:50)
[2021-01-01] MEDS ORDERED: cefTRIAXone 1,000 MG in 0.9 % Sodium Chloride Mini Bag 100 ML IVPB ONE (18:50)
[2021-01-01] MEDS ORDERED: cefTRIAXone 1,000 MG in Water for inj. (sterile) 10 ML IVP ONE (19:35)
[2021-01-01] MEDS ORDERED: Acetaminophen 325 MG TABLET PO PRN (22:01)
[2021-01-01] MEDS ORDERED: Melatonin 3 MG TABLET PO PRN (22:01)
[2021-01-01] MEDS ORDERED: Ondansetron 4 MG/2 ML VIAL IVP PRN (22:01)
[2021-01-01] MEDS ORDERED: Naloxone 0.4 MG/ML INJ IVP PRN (22:01)
[2021-01-01] MEDS ORDERED: Albuterol 2.5 MG/3 ML NEBULIZER IH PRN (22:02)
[2021-01-01] MEDS ORDERED: Nicotine 21 MG PATCH.TD24 TD SCH (22:15)
[2021-01-01] MEDS: Ipratropium/Albuterol Neb 3 ML IH SCH (23:55)
[2021-01-02] MEDS ORDERED: traZODone 50 MG TABLET PO SCH (00:15)
[2021-01-02] MEDS ORDERED: 0.9 % Sodium Chloride 1,000 ML IVC ONE (00:38)
[2021-01-02] MEDS: Gabapentin 400 MG CAPSULE PO SCH ×2 (00:58→09:03)
[2021-01-02] MEDS: Ipratropium/Albuterol Neb 3 ML IH SCH ×2 (05:01→09:55)
[2021-01-02] MEDS ORDERED: *HR* Heparin 5,000 UNIT/ML VIAL SQ SCH (06:00)
[2021-01-02 06:29] LABS: Basophils % 0.3 %; Hematocrit 37.9 % (37.5-50.1); Hemoglobin 12.5 g/dL (12.9-16.9); Immature Granulocytes % 0.4 % (0-4); Lymphocytes # 0.7 K/mcL (0.6-4.6); Mean Corpuscular Hemoglobin 30.1 pg (28.0-33.3); Mean Corpuscular Volume 91.3 fL (83.0-100.0); Mean Platelet Volume 10.2 fL (9.4-12.4); Monocytes # 0.3 K/mcL (0.0-1.3); Monocytes % 4.1 %; Neutrophils # 5.8 K/mcL (1.6-8.9); Platelet Count 215 K/mcL (140-400); Red Blood Count 4.15 M/mcL (4.19-5.50); Red Cell Distribution Width 12.9 % (11.5-14.5); Segmented Neutrophils % 85.2 %; White Blood Count 6.8 K/mcL (4.3-11.1)
[2021-01-02 06:51] LABS: Albumin 3.8 g/dL (3.5-5.7); Albumin/Globulin Ratio 1.2 (1.1-2.2); Bilirubin,Total 0.2 mg/dL (0.3-1.0); Calcium 9.1 mg/dL (8.6-10.3); Globulin 3.2 g/dL (2.4-3.5); Magnesium 1.6 mg/dL (1.6-2.6); Phosphorous 1.3 mg/dL (2.7-4.5); Potassium 3.8 mEq/L (3.5-5.1)
[2021-01-02] MEDS ORDERED: predniSONE 20 MG TABLET PO SCH (09:00)
[2021-01-02] MEDS ORDERED: lisinopriL 20 MG TABLET PO SCH (09:00)
[2021-01-02] MEDS ORDERED: Gabapentin 400 MG CAPSULE PO SCH (09:00)
[2021-01-02 11:07] VITALS: BP 143/88
[2021-01-02] MEDS ORDERED: Azithromycin 500 MG in 0.9 % Sodium Chloride 250 ML IVPB SCH (21:00)
== END 2021-01-02 13:00 | disposition home or self-care (01) ==
LOC: EMEROOARM 17:23 → 3ANU 17:23 → SUATTDRO 19:43 → 3ANU 20:28
PROVIDERS: ADMIT Family Medicine; ATTEND Internal Medicine